=== PATIENT | male | born 1935 | race Caucasian/White ===

== ENCOUNTER 2017-04-03 08:41 | Inpatient (IN) | payer BC ==
[~2017-04-03] VITALS: Ht 170.2 cm; Wt 72.0 kg
[~2017-04-03 08:41] MED LIST: AMARYL4 MG PO; ASPIR-LOW81 MG PO; ASPIRIN81 M1 PO; Ascorbic Acid,Ester- PO; CARDURA4 MG PO; CENTRUM SILV1 TABLET PO; IMDUR30 MG PO; IMDUR60 MG PO; LIPITOR10 MG PO; Levaquin PO; Niacin PO; Percocet 10/325,Endo PO; SUPER B COM1 CAPSULE PO; Tylenol Regular Stre PO; VITAMIN D1000 INTUN PO; Vitamin D PO
[2017-04-03 09:56] LABS: BASOPHIL (%) 0.2 % (0-1); EOSINOPHIL (%) 4.7 % (0-5); EOSINOPHIL COUNT 0.2 K/uL (0-0.3); HEMATOCRIT 30.1 % (38.0-50.0); IMMATURE GRANULOCYTE (%) 0.2 % (0.0-0.7); LYMPHOCYTE COUNT 0.9 K/uL (1.0-2.8); MCH 33.1 PG (29.0-34.0); MCHC 33.2 G/DL (30.0-36.0); MCV 99.7 FL (86-99); MONOCYTE (%) 7.3 % (3-12); MONOCYTE COUNT 0.3 K/uL (0-0.8); NEUTROPHIL (%) 67.6 % (45-76); NEUTROPHIL COUNT 2.9 K/uL (1.8-6.4); PLATELET COUNT 108 K/uL (156-360); RBC DIS.WIDTH-SD 47.3 % (39-53); RED BLOOD COUNT 3.02 M/uL (4.00-5.50); WHITE BLOOD COUNT 4.3 K/uL (4.1-10.2)
[2017-04-03 10:04] LABS: INTER. NORMALIZED RATIO 1.2
[2017-04-03 10:05] LABS: CHLORIDE 116 mEq/L (99-109); POTASSIUM 4.8 mEq/L (3.7-5.4); SODIUM 143 mEq/L (136-147)
[2017-04-03 10:06] LABS: MAGNESIUM 2.1 mg/dL (1.3-2.7); PTT 26.2 SEC (25-37)
[2017-04-03 10:07] LABS: GLUCOSE 56 mg/dL (70-99)
[2017-04-03 10:10] LABS: CREATININE 5.1 mg/dL (0.6-1.3); GFR ESTIMATE (CALCULATED) 12 mL/min/ (58.99-99999)
[2017-04-03 10:11] LABS: UREA NITROGEN (BUN) 57 mg/dL (9-23)
[2017-04-03 10:17] LABS: TROP-I INTERPRETATION NEGATIVE
[2017-04-03 13:59] VITALS: BP 138/68
[2017-04-03] MEDS ORDERED: LANTUS 3 M100 UNITS1 SC (14:06)
[2017-04-03] MEDS ORDERED: LEVOTHYROXINE125 MCG PO (14:07)
[2017-04-03] MEDS ORDERED: CHLORTHALIDONE25 MG PO (14:07)
[2017-04-03] MEDS ORDERED: TRADJENTA5 MG PO (14:07)
[2017-04-03] MEDS ORDERED: CLOPIDOGREL75 MG PO (14:07)
[2017-04-03] MEDS ORDERED: CALCITRIOL0.25 MCG PO (14:07)
[2017-04-03] MEDS ORDERED: NOVOLOG PE100 UNITS/ SC (14:07)
[2017-04-03] MEDS ORDERED: DOXAZOSIN MESYLA4 MG PO (14:09)
[2017-04-03 16:11] VITALS: BP 143/65
[2017-04-03 16:13] LABS: TROP-I INTERPRETATION INDETERMINATE
[2017-04-03 19:20] VITALS: BP 128/60
[2017-04-03 22:24] LABS: TROP-I INTERPRETATION INDETERMINATE; TROPONIN-I 0.38 ng/mL (0.0-0.30)
[2017-04-04 00:05] VITALS: BP 141/65
[2017-04-04 03:41] VITALS: BP 129/83
[2017-04-04 06:09] LABS: TROP-I INTERPRETATION INDETERMINATE
[2017-04-04 06:10] LABS: ALBUMIN 3.5 G/DL (3.2-4.8); CHLORIDE 111 MEQ/L (99-109); CREATININE 5.3 MG/DL (0.6-1.3); GFR ESTIMATE (CALCULATED) 11 mL/min/ (58.99-99999); IRON 56 MCG/DL (35-150); PHOSPHORUS 4.3 mg/dL (2.5-4.9); POTASSIUM 4.7 MEQ/L (3.7-5.4); SODIUM 142 MEQ/L (136-147); TRANSFERRIN (TIBC) 164.3 mg/dL (215-380); TRANSFERRIN SATUR. 34 % (20-55); UREA NITROGEN (BUN) 62 mg/dL (9-23)
[2017-04-04 06:11] LABS: GLUCOSE 51 mg/dL (70-99)
[2017-04-04 06:24] LABS: URIC ACID 6.5 mg/dL (3.1-9.2)
[2017-04-04 06:38] LABS: INTACT PARATHYROID HORMONE 106 pg/mL (10-69)
[2017-04-04 06:58] LABS: FERRITIN 131 NG/ML (22-322)
[2017-04-04 07:12] LABS: FOLIC ACID (FOLATE) > 22.0 NG/ML (5.0-22.0)
[2017-04-04 09:01] VITALS: BP 160/68
[2017-04-04 11:55] VITALS: BP 146/65
[2017-04-04 16:00] VITALS: BP 151/63
[2017-04-04 19:18] VITALS: BP 139/65
[2017-04-05 00:18] VITALS: BP 152/70
[2017-04-05 03:01] VITALS: BP 126/80
[2017-04-05 06:23] LABS: BASOPHIL (%) 0.2 % (0-1); EOSINOPHIL (%) 6.4 % (0-5); EOSINOPHIL COUNT 0.3 K/uL (0-0.3); HEMOGLOBIN 10.6 G/DL (12.5-16.6); IMMATURE GRANULOCYTE (%) 0.5 % (0.0-0.7); LYMPHOCYTE (%) 23.4 % (15-42); MCH 32.6 PG (29.0-34.0); MCHC 33.1 G/DL (30.0-36.0); MCV 98.5 FL (86-99); MONOCYTE (%) 9.9 % (3-12); MONOCYTE COUNT 0.4 K/uL (0-0.8); NEUTROPHIL (%) 59.6 % (45-76); NEUTROPHIL COUNT 2.5 K/uL (1.8-6.4); PLATELET COUNT 131 K/uL (156-360); RBC DIS.WIDTH-CV 12.7 % (11.8-14.6); RBC DIS.WIDTH-SD 46.1 % (39-53); RED BLOOD COUNT 3.25 M/uL (4.00-5.50); WHITE BLOOD COUNT 4.2 K/uL (4.1-10.2)
[2017-04-05 06:58] LABS: ALBUMIN 3.4 G/DL (3.2-4.8); ALKALINE PHOSPHATASE 49 IU/L (3-129); ALT (GPT) 10 IU/L (3-49); AST (GOT) 14 IU/L (2-34); CHLORIDE 109 MEQ/L (99-109); CREATININE 5.5 MG/DL (0.6-1.3); GFR ESTIMATE (CALCULATED) 11 mL/min/ (58.99-99999); POTASSIUM 4.9 MEQ/L (3.7-5.4); SODIUM 142 MEQ/L (136-147); TOTAL BILIRUBIN 0.4 MG/DL (0.0-1.0); TOTAL PROTEIN 6.2 G/DL (6.4-8.3); UREA NITROGEN (BUN) 67 mg/dL (9-23)
[2017-04-05 07:05] LABS: ALBUMIN 3.4 G/DL (3.2-4.8); CHLORIDE 108 MEQ/L (99-109); CREATININE 5.5 MG/DL (0.6-1.3); GFR ESTIMATE (CALCULATED) 11 mL/min/ (58.99-99999); PHOSPHORUS 4.9 mg/dL (2.5-4.9); SODIUM 143 MEQ/L (136-147); UREA NITROGEN (BUN) 66 mg/dL (9-23)
[2017-04-05 07:07] LABS: GLUCOSE 121 mg/dL (70-99)
[2017-04-05 07:08] LABS: GLUCOSE 121 mg/dL (70-99)
[2017-04-05 09:00] VITALS: BP 145/67
[2017-04-05 11:51] LABS: HEMOGLOBIN A1c (GLYCOHEMOGLOB) 5.6 % (Below 5.7)
[2017-04-05 12:00] VITALS: BP 131/63
[2017-04-05 15:00] VITALS: BP 126/60
[2017-04-05 21:00] VITALS: BP 128/64
[2017-04-05 22:38] LABS: APPEARANCE CLEAR ((CLEAR)); BILIRUBIN NEGATIVE; BLOOD SMALL; COLOR STRAW ((YELLOW)); GLUCOSE (STRIP) 150; KETONES NEGATIVE; LEUKOCYTES NEGATIVE; NITRITE NEGATIVE; PROTEIN (STRIP) 30; SPECIFIC GRAVITY 1.008 (1.000-1.030); UROBILINOGEN 0.2 MG/DL (0.2-1.0)
[2017-04-05 22:45] LABS: BACTERIA NONE SEEN /HPF; EPITHELIAL CELLS NONE SEEN /HPF; MUCUS TRACE /LPF; RED BLOOD CELLS 0-5 /HPF (0-5); UCUL ADDED? NO; WHITE BLOOD CELLS 0-5 /HPF (0-5)
[2017-04-06] VITALS (16 sets, daily range): BP systolic 118–151; BP diastolic 58–113
[2017-04-06 06:17] LABS: BASOPHIL (%) 0.5 % (0-1); EOSINOPHIL (%) 5.9 % (0-5); EOSINOPHIL COUNT 0.3 K/uL (0-0.3); HEMATOCRIT 32.7 % (38.0-50.0); HEMOGLOBIN 10.6 G/DL (12.5-16.6); IMMATURE GRANULOCYTE (%) 0.2 % (0.0-0.7); LYMPHOCYTE (%) 22.1 % (15-42); MCH 32.2 PG (29.0-34.0); MCHC 32.4 G/DL (30.0-36.0); MCV 99.4 FL (86-99); MONOCYTE (%) 7.4 % (3-12); MONOCYTE COUNT 0.3 K/uL (0-0.8); NEUTROPHIL (%) 63.9 % (45-76); NEUTROPHIL COUNT 2.8 K/uL (1.8-6.4); PLATELET COUNT 136 K/uL (156-360); RBC DIS.WIDTH-CV 12.6 % (11.8-14.6); RBC DIS.WIDTH-SD 45.6 % (39-53); RED BLOOD COUNT 3.29 M/uL (4.00-5.50); WHITE BLOOD COUNT 4.4 K/uL (4.1-10.2)
[2017-04-06 06:40] LABS: ALBUMIN 3.4 G/DL (3.2-4.8); CHLORIDE 107 MEQ/L (99-109); CREATININE 5.7 MG/DL (0.6-1.3); GFR ESTIMATE (CALCULATED) 10 mL/min/ (58.99-99999); GLUCOSE 128 mg/dL (70-99); PHOSPHORUS 4.5 mg/dL (2.5-4.9); POTASSIUM 5.1 MEQ/L (3.7-5.4); SODIUM 141 MEQ/L (136-147); UREA NITROGEN (BUN) 71 mg/dL (9-23)
[2017-04-06 14:48] LABS: HEMATOCRIT 31.8 % (38.0-50.0); HEMOGLOBIN 10.6 G/DL (12.5-16.6); MCH 33.2 PG (29.0-34.0); MCHC 33.3 G/DL (30.0-36.0); MCV 99.7 FL (86-99); PLATELET COUNT 116 K/uL (156-360); RBC DIS.WIDTH-CV 12.8 % (11.8-14.6); RBC DIS.WIDTH-SD 46.8 % (39-53); RED BLOOD COUNT 3.19 M/uL (4.00-5.50); WHITE BLOOD COUNT 4.2 K/uL (4.1-10.2)
[2017-04-06 14:53] LABS: INTER. NORMALIZED RATIO 1.1
[2017-04-06 14:56] LABS: PTT 26.3 SEC (25-37)
[2017-04-06 15:15] LABS: CHLORIDE 106 MEQ/L (99-109); POTASSIUM 4.7 MEQ/L (3.7-5.4); SODIUM 140 MEQ/L (136-147)
[2017-04-06 15:21] LABS: CREATININE 5.6 MG/DL (0.6-1.3); GFR ESTIMATE (CALCULATED) 10 mL/min/ (58.99-99999); HDL CHOLESTEROL 29 MG/DL (Desirable>=40); LDL CHOLESTEROL 43 mg/dL (Desirable<100); NON-HDL CHOLESTEROL 72 mg/dL (Desirable<160); TOTAL CHOLESTEROL 101 mg/dL (Desirable<200); TRIGLYCERIDES 146 MG/DL (Normal: <150); UREA NITROGEN (BUN) 69 mg/dL (9-23)
[2017-04-06 15:24] LABS: TROP-I INTERPRETATION NEGATIVE; TROPONIN-I 0.21 ng/mL (0.0-0.30)
[2017-04-06 15:27] LABS: GLUCOSE 215 mg/dL (70-99)
== END 2017-04-06 19:08 | disposition short-term general hospital (02) | DRG 291 ==
LOC: EME 08:41 → EDOF 12:20 → 4EAST 12:20 → ENRESERV 12:23 → 4EAST 13:58 → 4WEST 04-04 15:01 → 4EAST 04-04 15:01 → 4WEST 04-06 15:52
PROVIDERS: Emergency Medicine; Hospitalist; Internal Medicine; Internal Medicine Cardiovascular Disease; Internal Medicine Nephrology
DX: I50.21 Acute systolic (congestive) heart failure (principal); I63.311 Cerebral infarction due to thrombosis of right middle cerebral artery; R29.810 Facial weakness; N18.6 End stage renal disease; J98.11 Atelectasis; N17.9 Acute kidney failure, unspecified; E11.22 Type 2 diabetes mellitus with diabetic chronic kidney disease; I13.2 Hypertensive heart and chronic kidney disease with heart failure and with stage 5 chronic kidney disease, or end stage renal disease; G81.94 Hemiplegia, unspecified affecting left nondominant side; J90 Pleural effusion, not elsewhere classified; I25.10 Atherosclerotic heart disease of native coronary artery without angina pectoris; I34.0 Nonrheumatic mitral (valve) insufficiency; I70.0 Atherosclerosis of aorta; D69.6 Thrombocytopenia, unspecified; E78.5 Hyperlipidemia, unspecified; E11.51 Type 2 diabetes mellitus with diabetic peripheral angiopathy without gangrene; E03.9 Hypothyroidism, unspecified; D63.1 Anemia in chronic kidney disease; N25.81 Secondary hyperparathyroidism of renal origin; I42.9 Cardiomyopathy, unspecified; L29.9 Pruritus, unspecified; Z99.2 Dependence on renal dialysis; Z79.4 Long term (current) use of insulin; Z95.5 Presence of coronary angioplasty implant and graft; Z95.1 Presence of aortocoronary bypass graft; I25.2 Old myocardial infarction
CPT/HCPCS: 70450; 71045; 71046; 78452; 80048; 80048 91; 80053; 80061; 80069; 81003; 82140; 82306; 82607; 82728; 82746; 82948; 83036; 83540; 83735; 83880; 83970; 84443; 84466; 84484; 84550; 85025; 85027; 85610; 85730; 87641; 93005; 93017; 93306; 99281; 99285; A9500; G0378; J1644; J1815; J1940; J2785; J2997